=== PATIENT | male | born 1965 | race Caucasian/White ===

== ENCOUNTER 2018-02-11 14:51 | Emergency (ER) | payer MEDICAID ==
[~2018-02-11] VITALS: Ht 182.9 cm; Wt 117.1 kg
[2018-02-11 16:05] LABS: BASOPHILS # (AUTO) 0.05 x10^3/uL (0-0.1); BASOPHILS % (AUTO) 1 % (0-1); EOSINOPHILS # (AUTO) 0.16 x10^3/uL (0-0.4); EOSINOPHILS % (AUTO) 2 % (1-7); LYMPHOCYTES # (AUTO) 2.85 x10^3/uL (1-3.4); LYMPHOCYTES % (AUTO) 29 % (22-44); MD NO; MEAN CORPUSCULAR HEMOGLOBIN 34.7 pg (27.5-34.5); MEAN CORPUSCULAR HGB CONC 33.3 g/dL (33.2-36.2); MEAN CORPUSCULAR VOLUME 104.5 fL (81-97); MEAN PLATELET VOLUME 7.7 fL (7.4-10.4); MONOCYTES # (AUTO) 0.54 x10^3/uL (0.2-0.8); MONOCYTES % (AUTO) 6 % (2-9); NEUTROPHILS # (AUTO) 6.27 x10^3/uL (1.8-6.8); NEUTROPHILS % (AUTO) 64 % (42-75); PLATELET COUNT 462 x10^3/uL (130-400); RED BLOOD COUNT 3.65 x10^6/uL (4.38-5.82); RED CELL DISTRIBUTION WIDTH 13.7 % (9.4-14.8)
[2018-02-11 16:16] LABS: ALBUMIN 2.9 g/dL (3.4-5.0); ANION GAP 7 mmol/L (5-15); CALCIUM 8.6 mg/dL (8.5-10.1); CHLORIDE 103 mmol/L (98-107); CREATININE 1.26 mg/dL (0.7-1.3)
[2018-02-11] MEDS ORDERED: CLINDAMYCIN 150 MG CAPSULE PO ONE (16:30)
[2018-02-11] MEDS ORDERED: KETOROLAC 30 MG/1 ML IM ONE (16:30)
[2018-02-11] MEDS ORDERED: PLEASE ENTER ALLERGIES MC SCH (16:30)
[2018-02-11 17:29] VITALS: BP 136/77
[2018-02-11] MEDS ORDERED: METHADONE PO (17:31)
[2018-02-11] MEDS ORDERED: CLINDAMYCIN 300 MG CAPSULE ONE (17:35)
[2018-02-11] MEDS ORDERED: KETOROLAC 30 MG/1 ML ONE (17:35)
[2018-02-11] MEDS ORDERED: CLINDAMYCIN 150 MG CAPSULE ONE (17:36)
== END 2018-02-11 17:50 | disposition home or self-care (01) ==
LOC: ED 17:44
DX: L03.115 Cellulitis of right lower limb (principal); F17.200 Nicotine dependence, unspecified, uncomplicated
CPT/HCPCS: 36415; 80048; 82040; 85025; 93971; 96372; 99285; J1885

== ENCOUNTER 2020-02-25 19:27 | Emergency (ER) | payer SELFPAY ==
[~2020-02-25] VITALS: Ht 182.9 cm; Wt 120.2 kg
[~2020-02-25 19:27] MED LIST: METHADONE PO
[2020-02-25 19:39] VITALS: BP 145/97
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
[2020-02-25] MEDS ORDERED: TESTOSTERONE (19:58)
== END 2020-02-25 20:13 | disposition home or self-care (01) ==
LOC: ED 19:45
DX: S46.011A Strain of muscle(s) and tendon(s) of the rotator cuff of right shoulder, initial encounter (principal); J01.20 Acute ethmoidal sinusitis, unspecified; J01.10 Acute frontal sinusitis, unspecified; Z96.651 Presence of right artificial knee joint; X58.XXXA Exposure to other specified factors, initial encounter; Y93.89 Activity, other specified; Y92.89 Other specified places as the place of occurrence of the external cause; Y99.8 Other external cause status
CPT/HCPCS: 99283

== ENCOUNTER 2020-10-28 11:03 | Emergency (ER) | payer MEDICAID ==
[~2020-10-28] VITALS: Ht 180.3 cm; Wt 120.9 kg
[~2020-10-28 11:03] MED LIST changes: +TESTOSTERONE
--- NOTE | 2020-10-28 11:41 | NUR ---
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
[2020-10-28 14:24] VITALS: BP 141/98
== END 2020-10-28 14:35 | disposition home or self-care (01) ==
LOC: ED 13:29
DX: M16.12 Unilateral primary osteoarthritis, left hip (principal); Z87.891 Personal history of nicotine dependence
CPT/HCPCS: 99283